=== PATIENT | female | born 1965 | race Caucasian/White ===

== ENCOUNTER 2016-12-05 17:10 | Emergency (ER) | payer SELFPAY ==
[~2016-12-05] VITALS: Ht 160 cm; Wt 55.6 kg
[~2016-12-05 17:10] MED LIST: LAMI200T PO; LEVA250T PO; LORA-392 PO
[2016-12-05 17:23] VITALS: BP 104/66; PULSE 92; RESP 20; TEMP 98; O2SAT 98
--- NOTE | 2016-12-05 17:57 | PD ---
HPI Chief Complaint: Musculoskeletal Complaint Time Seen by Provider: 17:40 Travel History International Travel<30 days: No Contact w/Intl Traveler<30days: No Traveled to known affect area: No History of Present Illness HPI 51-year-old female presents to the emergency room for evaluation of the left lateral rib cage pain for the past 1.5 weeks. Patient tripped and fell over her vacuum millstone cleaner and landed with her left ribs directly on the vacuum. She denies hearing or feeling any pops but since then has had persistent left rib pain. Denies any other injuries and did not hit her head. States at first she thought it was just a bruise but because the pain is continuing, she became concerned for something more. She becomes winded more quickly but denies shortness of breath or difficulty breathing. PFSH Past Medical History Asthma: Yes Blood Disorders: No Anxiety: Yes Cancer: No Cardiovascular Problems: Yes (MITRAL VALVE PROLAPSE) High Cholesterol: No Chest Pain: No Diabetes: No Diminished Hearing: Yes (RIGHT EARDRUM RUPTURED) Endocrine: No Gastrointestinal Disorders: Yes (CHRONES/ COLITIS) Genitourinary: Yes (2 KIDNEY STONES) Immune Disorder: No Implanted Vascular Access Dvce: No Kidney Stones: Yes Musculoskeletal: Yes (LEFT KNEE REPAIR X2) Neurologic: Yes (MIGRAINES, SEIZURES) Psychiatric: No Reproductive: No Respiratory: Yes (ASTHMA) Integumentary: Yes (Rosacea) Migraines: Yes Seizures: Yes Thyroid Disease: No Tetanus Vaccination: < 5 Years Influenza Vaccination: No PNEUMOCCOCAL Vaccine (Year): 1 ?: Not Menopausal: Yes Dilation and Curettage (D&C): Yes Past Surgical History Genitourinary Surgery: Yes (KIDNEY STONES) Gynecologic Surgery: Yes (D/C) Hysterectomy: Yes Pacemaker: No Other Surgery: Yes (LEFT KNEE, 4 D&C'S, PARTIAL HYSTERECTOMY) Social History Alcohol Use: No Tobacco Use: No Substance Use: No Allergies-Medications (Allergen,Severity, Reaction): Coded Allergies: Adhesives (Verified Allergy, Severe, Swelling, 12/05/16) SURGICAL ADHESIVES Sulfa (Verified Allergy, Severe, Swelling AND FLU LIKE SYMPTOMS , 12/05/16) Reported Meds & Prescriptions Reported Meds & Active Scripts Active Reported Lamictal (Lamotrigine) 200 Mg Tab 200 Mg PO BID Ativan (Lorazepam) 0.5 Mg Tab 0.5 Mg PO BID Review of Systems Except as stated in HPI: all other systems reviewed are Neg Physical Exam Narrative GENERAL: Well-nourished, well-developed female in no acute distress. Afebrile. Ambulatory. SKIN: Warm and dry. HEAD: Normocephalic. EYES: No scleral icterus. No injection or drainage. NECK: Supple, trachea midline. No JVD or lymphadenopathy. CARDIOVASCULAR: Regular rate and rhythm without murmurs, gallops, or rubs. RESPIRATORY: Breath sounds equal bilaterally. No accessory muscle use. CHEST: Tenderness to palpation of the left lateral rib cage/axilla. No deformity or crepitance. No retractions or use of accessory muscles. Data Data Last Documented VS Vital Signs Date Time Temp Pulse Resp B/P Pulse Ox O2 Delivery O2 Flow Rate FiO2 12/05/16 17:23 98.0 92 20 104/66 98 Orders Ribs, Uni (W/Exp Cxr-Min 3vw) (12/05/16 ) [facility] Medical Decision Making Medical Screen Exam Complete: Yes Emergency Medical Condition: Yes Medical Record Reviewed: Yes Differential Diagnosis Contusion versus fracture versus pneumothorax less likely Narrative Course 51-year-old female presents to the emergency room for evaluation of left lower rib pain for the past 1.5 weeks. Patient tripped and fell landing on her vacuum millstone cleaner at onset of symptoms. Denies difficulty breathing or shortness of breath. Patient is tenderness to palpation in the left lateral rib cage especially at the axilla. No crepitus or obvious deformity. Vital signs stable. Patient is 98% on room air. Lungs sounds clear and equal bilaterally. Chest x-ray negative for acute bony abnormality. No pneumothorax appreciated. The patient likely has rib contusion or occult rib fracture. Discharged with orthopedic instructions and told to continue deep breathing to avoid pneumonia. She understands and agrees to plan. Diagnosis Primary Impression: Contusion of rib on left side Qualified Code: S20.212A - Contusion of rib on left side, initial encounter Referrals: Primary Care Physician Patient Instructions: General Instructions, Rib Contusion (ED) Additional Instructions: Rest and drink plenty of fluids. Take ibuprofen with food as directed, as needed for pain. Apply ice to the affected area for 20 minutes at a time, as needed for pain and swelling. Follow-up with a primary care physician. Return to the emergency room for worsening symptoms. Med/Other Pt SpecificInfo: Prescription(s) given Disposition: 01 DISCHARGE HOME Condition: Stable Nora Worrell Dec 05, 2016 17:57
--- NOTE | 2016-12-05 18:46 | RADHPO ---
EXAM DATE/TIME: 12/05/2016 17:49 [facility] COMPARISON: No previous studies available for comparison. INDICATIONS : Left side rib pain after falling on a vacuum machine cleaner MEDICAL HISTORY : Crohn's disease. SURGICAL HISTORY : Hysterectomy. ENCOUNTER: Initial ACUITY: 1 week PAIN SCORE: 7/10 LOCATION: Left lateral chest FINDINGS: Multiple views of the left ribs were performed. There is no evidence of displaced fracture. No dest ructive lesions or areas of periosteal thickening are seen. Expiratory view of the chest is negative for pneumothorax. The mediastinal structures are midline. CONCLUSION: Negative trauma study with no evidence of rib fracture. Ravi Guajardo MD on December 05, 2016 at 18:44 Board Certified Radiologist. This report was verified electronically.
== END 2016-12-05 19:05 | disposition home or self-care (01) ==
LOC: PHEFT 17:10
DX: S20.212A Contusion of left front wall of thorax, initial encounter (principal); G40.909 Epilepsy, unspecified, not intractable, without status epilepticus; Z87.442 Personal history of urinary calculi; W01.0XXA Fall on same level from slipping, tripping and stumbling without subsequent striking against object, initial encounter; Y93.E3 Activity, vacuuming; Y92.009 Unspecified place in unspecified non-institutional (private) residence as the place of occurrence of the external cause
CPT/HCPCS: 71101; 99283

== ENCOUNTER 2017-12-03 09:56 | Emergency (ER) | payer SELFPAY ==
[~2017-12-03] VITALS: Ht 157.5 cm; Wt 58.5 kg
[~2017-12-03 09:56] MED LIST changes: -LEVA250T PO
[2017-12-03 09:58] VITALS: BP 117/58; PULSE 92; RESP 16; TEMP 99.6; O2SAT 97
[2017-12-03] MEDS ORDERED: BENZ100 PO (10:30)
[2017-12-03] MEDS ORDERED: AZIT250T3 PO (10:30)
--- NOTE | 2017-12-03 10:30 | PD ---
HPI Chief Complaint: Cold / Flu Symptoms Time Seen by Provider: 10:26 Travel History International Travel<30 days: No Contact w/Intl Traveler<30days: No Traveled to known affect area: No History of Present Illness HPI 52-year-old female here with productive cough and left rib pain. She reports she had minor URI like symptoms for the last 7-10 days. The cough became productive with colored sputum over the last several days. Rib pain this morning. She denies chest pain, palpitations, shortness of breath. She reports symptom severity is moderate. Pain is aggravated by palpation of the ribs and twisting of the torso. Pain slightly relieved with rest. PFSH Past Medical History Asthma: Yes Autoimmune Disease: Yes Blood Disorders: No Anxiety: Yes Cancer: No Cardiovascular Problems: Yes (MITRAL VALVE PROLAPSE) High Cholesterol: No Chest Pain: No Diabetes: No Diminished Hearing: Yes (RIGHT EARDRUM RUPTURED) Endocrine: No Gastrointestinal Disorders: Yes (CHRONES/ COLITIS) Genitourinary: Yes (2 KIDNEY STONES) Immune Disorder: No Implanted Vascular Access Dvce: No Kidney Stones: Yes Musculoskeletal: Yes (LEFT KNEE REPAIR X2) Neurologic: Yes (MIGRAINES, SEIZURES) Psychiatric: No Reproductive: No Respiratory: Yes (ASTHMA) Integumentary: Yes (Rosacea) Migraines: Yes Seizures: Yes Thyroid Disease: No Influenza Vaccination: No PNEUMOCCOCAL Vaccine (Year): 1 ?: Not Menopausal: Yes Dilation and Curettage (D&C): Yes Past Surgical History Genitourinary Surgery: Yes (KIDNEY STONES) Gynecologic Surgery: Yes (D/C) Hysterectomy: Yes Pacemaker: No Other Surgery: Yes (LEFT KNEE, 4 D&C'S, PARTIAL HYSTERECTOMY) Social History Alcohol Use: No Tobacco Use: No Substance Use: No Allergies-Medications (Allergen,Severity, Reaction): Coded Allergies: Sulfa (Sulfonamide Antibiotics) (Unverified Allergy, Severe, Swelling AND FLU LIKE SYMPTOMS , 12/03/17) adhesive (Unverified Allergy, Severe, Swelling, 12/03/17) SURGICAL ADHESIVES Reported Meds & Prescriptions Reported Meds & Active Scripts Active Tessalon Perles (Benzonatate) 100 Mg Cap 200 Mg PO TID PRN Azithromycin 250 Mg Tab 250 Mg PO DIRECTED Take 2 tabs (500 mg) on day 1 then 1 tab daily x 4 days. Reported Lamictal (Lamotrigine) 200 Mg Tab 250 Mg PO BID Ativan (Lorazepam) 0.5 Mg Tab 0.5 Mg PO BID Review of Systems Except as stated in HPI: all other systems reviewed are Neg Physical Exam Narrative GENERAL: Alert well-appearing female in no distress. SKIN: Warm and dry. HEAD: Normocephalic. EYES: No injection or drainage. NECK: Supple, trachea midline. No JVD or lymphadenopathy. CARDIOVASCULAR: Regular rate and rhythm without murmurs, gallops, or rubs. Mild Left anterior lateral rib pain to palpation. No crepitus. RESPIRATORY: Breath sounds equal bilaterally. No accessory muscle use. GASTROINTESTINAL: Abdomen soft, non-tender, nondistended. MUSCULOSKELETAL: No cyanosis, or edema. BACK: Nontender without obvious deformity. No CVA tenderness. Data Data Last Documented VS Vital Signs Date Time Temp Pulse Resp B/P (MAP) Pulse Ox O2 Delivery O2 Flow Rate FiO2 12/03/17 10:11 97 Room Air 12/03/17 09:58 99.6 92 16 117/58 (77) Orders Orders Ed Discharge Order (12/03/17 10:30) MDM Medical Decision Making Medical Screen Exam Complete: Yes Emergency Medical Condition: Yes Differential Diagnosis Bronchitis, pneumonia, influenza Narrative Course 52-year-old female with productive cough and left rib pain x 7 days. Vital signs are stable. Patient is nontoxic-appearing. Her pain is reproducible. Patient be treated for bronchitis. Diagnosis Primary Impression: Acute bronchitis Qualified Codes: J20.9 - Acute bronchitis, unspecified Referrals: Primary Care Physician Scripts Benzonatate (Tessalon Perles) 100 Mg Cap 200 MG PO TID Y for COUGH, #15 CAP 0 Refills Prov: Jennifer Craig 12/03/17 Azithromycin (Azithromycin) 250 Mg Tab 250 MG PO DIRECTED for Infection, #6 TAB 0 Refills Take 2 tabs (500 mg) on day 1 then 1 tab daily x 4 days. Prov: Jennifer Craig 12/03/17 Disposition: 01 DISCHARGE HOME Condition: Stable Jennifer Craig Dec 03, 2017 10:30
== END 2017-12-03 10:45 | disposition home or self-care (01) ==
LOC: PHEFT 09:56
DX: J20.9 Acute bronchitis, unspecified (principal)
CPT/HCPCS: 99284

== ENCOUNTER 2017-12-07 22:14 | Emergency (ER) | payer SELFPAY ==
[~2017-12-07] VITALS: Ht 157.5 cm; Wt 59.0 kg
[~2017-12-07 22:14] MED LIST changes: +AZIT250T3 PO; +BENZ100 PO
[2017-12-07 22:53] VITALS: BP 120/57; PULSE 77; RESP 18; TEMP 98.2; O2SAT 97
[2017-12-08] MEDS ORDERED: TRAM50TA PO (09:41)
== END 2017-12-07 23:32 | disposition left against medical advice (07) ==
LOC: PHED 22:14
DX: R07.81 Pleurodynia (principal)
CPT/HCPCS: 99281

== ENCOUNTER 2017-12-08 08:21 | Emergency (ER) | payer SELFPAY ==
[2017-12-08 08:23] VITALS: BP 115/53; PULSE 84; RESP 18; TEMP 98.4; O2SAT 100
--- NOTE | 2017-12-08 09:05 | PD ---
HPI Chief Complaint: Musculoskeletal Complaint Time Seen by Provider: 08:57 Travel History International Travel<30 days: No Contact w/Intl Traveler<30days: No Traveled to known affect area: No History of Present Illness HPI The patient was seen and examined in the presence of the nurse. This patient complains of pain in her rib cage. She is getting over a bronchitis and has been coughing a lot. No injury or fever. The only time she has pain is when she presses on her rib or moves her torso or takes a deep breath. Severity is moderate. Duration 2 days PFSH Past Medical History Asthma: Yes Autoimmune Disease: Yes Blood Disorders: No Anxiety: Yes Cancer: No Cardiovascular Problems: Yes (MITRAL VALVE PROLAPSE) High Cholesterol: No Chest Pain: No Diabetes: No Diminished Hearing: Yes (RIGHT EARDRUM RUPTURED) Endocrine: No Gastrointestinal Disorders: Yes (CHRONES/ COLITIS) Genitourinary: Yes (2 KIDNEY STONES) Immune Disorder: No Implanted Vascular Access Dvce: No Kidney Stones: Yes Musculoskeletal: Yes (LEFT KNEE REPAIR X2) Neurologic: Yes (MIGRAINES, SEIZURES) Psychiatric: No Reproductive: No Respiratory: Yes (ASTHMA) Integumentary: Yes (Rosacea) Migraines: Yes Seizures: Yes Thyroid Disease: No PNEUMOCCOCAL Vaccine (Year): 1 ?: Not Menopausal: Yes Dilation and Curettage (D&C): Yes Past Surgical History Genitourinary Surgery: Yes (KIDNEY STONES) Gynecologic Surgery: Yes (D/C) Hysterectomy: Yes Pacemaker: No Other Surgery: Yes (LEFT KNEE, 4 D&C'S, PARTIAL HYSTERECTOMY) Social History Alcohol Use: No Tobacco Use: No Substance Use: No Allergies-Medications (Allergen,Severity, Reaction): Coded Allergies: Sulfa (Sulfonamide Antibiotics) (Unverified Allergy, Severe, Swelling AND FLU LIKE SYMPTOMS , 12/08/17) adhesive (Unverified Allergy, Severe, Swelling, 12/08/17) SURGICAL ADHESIVES Reported Meds & Prescriptions Reported Meds & Active Scripts Active Tramadol (Tramadol HCl) 50 Mg Tab 50 Mg PO Q6H PRN Reported Lamictal (Lamotrigine) 200 Mg Tab 250 Mg PO BID Ativan (Lorazepam) 0.5 Mg Tab 0.5 Mg PO BID Review of Systems General / Constitutional: No: Fever HENT: No: Headaches Respiratory: Positive: Cough Physical Exam Narrative GASTROINTESTINAL: Abdomen soft, non-tender, nondistended. Positive bowel sounds. No hepato-splenomegaly, or palpable masses. No guarding. SKIN: Focused skin assessment reveals no rash or ulcers. Skin is warm and dry. Palpation shows no induration or nodules. RESPIRATORY: Respiratory effort unlabored, no retractions or use of accessory muscles. Breath sounds are clear and symmetric. Chest wall: Patient has readily reproducible chest wall tenderness in the mid clavicular line on the right side bottom of the rib cage without crepitus or bruising Data Data Last Documented VS Vital Signs Date Time Temp Pulse Resp B/P (MAP) Pulse Ox O2 Delivery O2 Flow Rate FiO2 12/08/17 08:23 98.4 84 18 115/53 (73) 100 Orders Orders Chest, Single Ap (12/08/17 ) [facility] Medical Decision Making Medical Screen Exam Complete: Yes Emergency Medical Condition: Yes Medical Record Reviewed: Yes Differential Diagnosis Chest wall pain, rib contusion, intercostal muscle strain, pneumothorax Narrative Course I have reviewed the patient's electronic medical record. I reviewed her chest x-ray which shows no rib injury or pneumothorax. There is mention of a bit of scar tissue to atypical feature at the right apex. I reviewed this at length with the patient. She will receive quest her doctor reviewed and discuss CAT scan This does not need to be done emergently I wrote some tramadol for chest wall pain Diagnosis Primary Impression: Musculoskeletal chest pain Additional Impression: Abnormal chest x-ray Additional Instructions: The patient was advised to follow up with their physician and return if they worsen. The patient was warned about potential sedation for the medications they will receive on prescription. Discuss your chest x-ray results with primary physician Med/Other Pt SpecificInfo: Prescription(s) given Scripts Tramadol (Tramadol) 50 Mg Tab 50 MG PO Q6H Y for PAIN, #15 TAB 0 Refills Prov: Tony Jalloh MD 12/08/17 Disposition: 01 DISCHARGE HOME Condition: Stable Tony Jalloh MD Dec 08, 2017 09:04
--- NOTE | 2017-12-08 09:27 | RADRPT ---
EXAM DATE/TIME: 12/08/2017 09:12 [facility] COMPARISON: CHEST SINGLE AP, February 14, 2016, 13:58. INDICATIONS : Chest pain after coughing MEDICAL HISTORY : None. SURGICAL HISTORY : None. ENCOUNTER: Initial ACUITY: 3 days PAIN SCORE: 4/10 LOCATION: Right lateral chest FINDINGS: Asymmetrical apical changes on the right. Left lung is clear. The heart and pulmonary vascularity a re normal. The portion of the bony skeleton visualized is unremarkable. CONCLUSION: 1. Asymmetrical apical changes on the right. Noncontrast CT scan would be of benefit. Fox Thomas MD FACR on December 08, 2017 at 9:23 Board Certified Radiologist. This report was verified electronically.
[2017-12-08] MEDS ORDERED: TRAM50TA PO (09:41)
== END 2017-12-08 10:12 | disposition home or self-care (01) ==
LOC: PHED 08:21
DX: R07.89 Other chest pain (principal); R91.8 Other nonspecific abnormal finding of lung field; R05 Cough; F41.9 Anxiety disorder, unspecified; G40.909 Epilepsy, unspecified, not intractable, without status epilepticus; Z87.09 Personal history of other diseases of the respiratory system; Z86.79 Personal history of other diseases of the circulatory system; Z87.19 Personal history of other diseases of the digestive system; Z87.448 Personal history of other diseases of urinary system; Z87.39 Personal history of other diseases of the musculoskeletal system and connective tissue; Z86.69 Personal history of other diseases of the nervous system and sense organs
CPT/HCPCS: 71045; 99283